=== PATIENT | female | born 1960 | race Caucasian/White ===

== ENCOUNTER 2021-04-07 23:31 | Emergency (ER) | payer BC, MEDICAID ==
[2021-04-08] MEDS ORDERED: Boostrix 0.5 ML (Tdap) VIAL ONE (00:40)
[2021-04-08] MEDS ORDERED: Ondansetron PF 4 MG/2 ML Vial ONE (02:37)
[2021-04-08] MEDS ORDERED: Morphine 2 MG/ML VIAL ONE (02:37)
[2021-04-08] MEDS ORDERED: traMADol HCl 50 MG TAB ONE (02:55)
== END 2021-04-08 03:01 | disposition home or self-care (01) ==
LOC: ERS 23:31
DX: S01.01XA Laceration without foreign body of scalp, initial encounter (principal); S20.219A Contusion of unspecified front wall of thorax, initial encounter; F17.210 Nicotine dependence, cigarettes, uncomplicated; Y04.2XXA Assault by strike against or bumped into by another person, initial encounter
CPT/HCPCS: 70450; 70486; 71045; 72125; 90471; 90715; 96374; J2270; J2405